=== PATIENT | female | born 1940 | race African-American/Black ===

== ENCOUNTER → 2017-03-12 | Emergency (ER) | payer MEDICARE, MEDICAID ==
[~2017-03-12] VITALS: Ht 121.9 cm; Wt 43.1 kg
[2017-03-12 13:46] VITALS: BP 108/49
--- NOTE | 2017-03-12 13:48 | Emergency Room Report ---
History of Present Illness General Chief Complaint: Syncope Source: Patient Present Illness HPI The patient is a 76-year-old female who had a witnessed syncope episode. Patient was noted to be visiting a family member when she became unresponsive. Patient had been noted to have prior history of diabetes as well as dementia. She's normally be nonverbalPatient was noted awake and alert. She did not hit her head. Allergies: Coded Allergies: IODINE (Verified Allergy, Unknown, 03/12/17) Uncoded Allergies: NON-STEROID ANTI-INFLAMMATORY (Allergy, Unknown, 03/12/17) Patient History Past Medical History: see triage record Reviewed Nursing Documentation: PMH: Agreed, PSxH: Agreed Review of Systems All Other Systems: limited - by mental status Physical Exam Sp02 EP Interpretation: reviewed, normal General Appearance: normal inspection, well appearing, no apparent distress, alert Head: atraumatic ENT: normal ENT inspection, hearing grossly normal, normal voice Neck: normal inspection, full range of motion, supple, no bony tend Respiratory: normal inspection, lungs clear, normal breath sounds, no respiratory distress, no retraction, no wheezing Cardiovascular #1: regular rate, rhythm, no edema Gastrointestinal: normal inspection, normal bowel sounds, non tender, soft, no guarding, no hernia Genitourinary: no CVA tenderness Musculoskeletal: normal inspection, back normal, normal range of motion, other - right leg externally rotated Neurologic: normal inspection, alert, responsive, other - aphasic Psychiatric: normal inspection, judgement/insight normal, mood/affect normal Skin: normal inspection, normal color, no rash Medical Decision Making Diagnostic Impression: Primary Impression: Syncope Additional Impressions: Renal insufficiency Hyperglycemia ER Course Patient presented for syncope. Differential diagnosis included but was not limited to arrhythmia, orthostatic hypotension, hypovolemia, vasovagal, anemia among others.Because of complexity of patient's case laboratory testing and imaging studies were ordered. The EKG interpreted by me showed normal sinus rhythm with a rate of [address] or T wave changes.Laboratory testing showed elevation of his BUN/ creatinine. Patient's family member this is chronic. The patient's troponin was negative. Patient normal white blood count. Patient daughter was offered admission to the hospital for further observation and she declined. The patient was given insulin for hyperglycemia. The patient be somewhat dehydrated due to the elevated blood sugar and believe this is the cause for syncopeThe patient is advised to follow up with primary care doctor in 1-2 days. Patient is advised to return if any worsening condition or if any changes in status that are concerning. Labs Test 03/12/17 13:41 03/12/17 14:50 White Blood Count 5.1 K/UL (4.8-10.8) Red Blood Count 3.62 M/UL (4.20-5.40) Hemoglobin 9.7 G/DL (12.0-16.0) Hematocrit 30.3 % (37.0-47.0) Mean Corpuscular Volume 84 FL (80-99) Mean Corpuscular Hemoglobin 26.9 PG (27.0-31.0) Mean Corpuscular Hemoglobin Concent 32.2 G/DL (32.0-36.0) Red Cell Distribution Width 12.2 % (11.6-14.8) Platelet Count 180 K/UL (150-450) Mean Platelet Volume 6.0 FL (6.5-10.1) Neutrophils (%) (Auto) 63.6 % (45.0-75.0) Lymphocytes (%) (Auto) 27.4 % (20.0-45.0) Monocytes (%) (Auto) 7.8 % (1.0-10.0) Eosinophils (%) (Auto) 0.2 % (0.0-3.0) Basophils (%) (Auto) 0.9 % (0.0-2.0) Prothrombin Time 10.1 SEC (9.30-11.50) Prothromb Time International Ratio 1.0 (0.9-1.1) Activated Partial Thromboplast Time 22 SEC (23-33) Sodium Level 137 mEQ/L (135-145) Potassium Level 4.4 mEQ/L (3.4-4.9) Chloride Level 103 mEQ/L (98-107) Carbon Dioxide Level 23 mEQ/L (20-30) Anion Gap 11 (5-15) Blood Urea Nitrogen 30 mg/dL (7-23) Creatinine 2.9 mg/dL (0.5-0.9) Estimat Glomerular Filtration Rate mL/min (>60) Glucose Level 347 mg/dL (74-106) Lactic Acid Level 1.10 mmol/L (0.66-2.22) Calcium Level 9.0 mg/dL (8.6-10.2) Total Bilirubin 0.3 mg/dL (0.0-1.2) Aspartate Amino Transf (AST/SGOT) 13 U/L (5-40) Alanine Aminotransferase (ALT/SGPT) 12 U/L (3-33) Alkaline Phosphatase 92 U/L (35-104) Total Creatine Kinase 53 U/L (26-140) Creatine Kinase MB < 1.5 ng/mL (< 3.8) Creatine Kinase MB Relative Index Troponin I < 0.30 ng/mL (<=0.30) Pro-B-Type Natriuretic Peptide 135 pg/mL (0-125) Total Protein 6.1 g/dL (6.6-8.7) Albumin 4.0 g/dL (3.5-5.2) Globulin 2.1 g/dL Albumin/Globulin Ratio 1.9 (1.0-2.7) Urine Color Pale yellow Urine Appearance Clear Urine pH 5 (4.5-8.0) Urine Specific [place] 1.010 (1.005-1.035) Urine Protein 2+ (NEGATIVE) Urine Glucose (UA) 4+ (NEGATIVE) Urine Ketones Negative (NEGATIVE) Urine Occult Blood Negative (NEGATIVE) Urine Nitrite Negative (NEGATIVE) Urine Bilirubin Negative (NEGATIVE) Urine Urobilinogen Normal MG/DL (0.0-1.0) Urine Leukocyte Esterase Negative (NEGATIVE) Status: improved Disposition: HOME, SELF-CARE Condition: Stable [place] Mar 12, 2017 13:48
[2017-03-12 13:54] LABS: BASOPHILS % (AUTO) 0.9 % (0.0-2.0); EOSINOPHILS % (AUTO) 0.2 % (0.0-3.0); LYMPHOCYTES % (AUTO) 27.4 % (20.0-45.0); MEAN CORPUSCULAR HEMOGLOBIN 26.9 PG (27.0-31.0); MEAN CORPUSCULAR HGB CONC 32.2 G/DL (32.0-36.0); MEAN CORPUSCULAR VOLUME 84 FL (80-99); MONOCYTES % (AUTO) 7.8 % (1.0-10.0); NEUTROPHILS % (AUTO) 63.6 % (45.0-75.0); PLATELET COUNT 180 K/UL (150-450); RED BLOOD COUNT 3.62 M/UL (4.20-5.40); RED CELL DISTRIBUTION WIDTH 12.2 % (11.6-14.8); WHITE BLOOD COUNT 5.1 K/UL (4.8-10.8)
--- NOTE | 2017-03-12 14:02 | Diagnostic Imaging Report ---
Indication: SYNCOPE Technique: One view of the chest Comparison: none Findings: Lungs and pleural spaces are clear. Heart size is normal. Impression: No acute process
[2017-03-12 14:09] LABS: TROPONIN I < 0.30 ng/mL (<=0.30)
[2017-03-12 14:12] LABS: ALANINE AMINOTRANSFERASE 12 U/L (3-33); ALBUMIN/GLOBULIN RATIO 1.9 (1.0-2.7); ANION GAP 11 (5-15); ASPARTATE AMINO TRANSFERASE 13 U/L (5-40); CARBON DIOXIDE 23 mEQ/L (20-30); CHLORIDE 103 mEQ/L (98-107); CREATININE 2.9 mg/dL (0.5-0.9); HEMOLYSIS 8; POTASSIUM 4.4 mEQ/L (3.4-4.9); SODIUM 137 mEQ/L (135-145); TOTAL PROTEIN 6.1 g/dL (6.6-8.7)
[2017-03-12 14:22] LABS: CKMB < 1.5 ng/mL (< 3.8)
[2017-03-12 14:33] LABS: PROTHROMBIN TIME 10.1 SEC (9.30-11.50)
[2017-03-12 15:06] LABS: APPEARANCE,URINE CLEAR; KETONES,URINE NEGATIVE (NEGATIVE); LEUKOCYTE ESTERASE ,URINE NEGATIVE (NEGATIVE); NITRITE,URINE NEGATIVE (NEGATIVE); PH,URINE 5 (4.5-8.0); PROTEIN,URINE 2+ (NEGATIVE); UROBILINOGEN,URINE NORMAL MG/DL (0.0-1.0)
[2017-03-12 15:30] LABS: RBC,URINE 0-2 /HPF (0 - 2)
[2017-03-12 15:31] VITALS: BP 122/52
[2017-03-12 15:31] LABS: WBC,URINE 0-2 /HPF (0 - 2)
--- NOTE | 2017-03-12 16:03 | Diagnostic Imaging Report ---
Indication: PAIN Technique: One view of the pelvis Comparison: None Findings: No definite acute fractures. No dislocations. Joint spaces are preserved. There are degenerative changes of the lumbosacral junction. There is transitional lumbosacral anatomy. Impression: No definite acute bony trauma Note, however, that in elderly osteopenic patients nondisplaced hip or pelvic fractures can easily be occult. Consider cross-sectional imaging for further evaluation if there is high clinical suspicion
== END | disposition home or self-care (01) ==
LOC: EMR 15:39
DX: R55 Syncope and collapse (principal); N28.9 Disorder of kidney and ureter, unspecified; E11.65 Type 2 diabetes mellitus with hyperglycemia
CPT/HCPCS: 36415; 71010; 72170; 80053; 81003; 82550; 82553; 82962; 83605; 83880; 84484; 85025; 85610; 85730; 87040; 93005; 96374; 99284; J1815; J7040